=== PATIENT | female | born 1960 | race Caucasian/White ===

== ENCOUNTER 2019-09-21 10:45 | Emergency (ER) | payer SELFPAY ==
[~2019-09-21] VITALS: Ht 170.2 cm; Wt 138.8 kg
[2019-09-21] MEDS ORDERED: ONDANSETRON HCL/PF 4 MG/2 ML VIAL IVP ONE (11:00)
[2019-09-21] MEDS ORDERED: LABETALOL 20 MG/4 ML VIAL IV ONE (11:00)
[2019-09-21] MEDS ORDERED: MORPHINE SULFATE INJ 2 MG/ML DISP.SYRIN IV ONE (11:00)
[2019-09-21] MEDS ORDERED: IV NS 0.9% 500 ML BAG IV ONE (11:00)
[2019-09-21] MEDS ORDERED: LABETALOL HCL IV 100MG VIAL ONE (11:01)
[2019-09-21] MEDS ORDERED: MORPHINE SULFATE INJ 4 MG/ML DISP.SYRIN ONE (11:01)
[2019-09-21] MEDS ORDERED: ONDANSETRON HCL/PF 4 MG/2 ML VIAL ONE (11:01)
[2019-09-21 11:02] LABS: BASOPHILS # (AUTO) 0.1 /CMM (0.0-0.2); BASOPHILS % (AUTO) 0.9 % (0.0-2.0); EOSINOPHILS % (AUTO) 3.4 % (0.0-6.0); HEMATOCRIT 48 % (33-45); HEMOGLOBIN 16.3 g/dL (11.5-14.8); LYMPHOCYTES # (AUTO) 2.5 /CMM (0.8-4.8); LYMPHOCYTES % (AUTO) 34.1 % (20.0-44.0); MEAN CORPUSCULAR HGB CONC 34 g/dl (31.0-36.0); MEAN CORPUSCULAR VOLUME 90 fL (82-100); MONOCYTES # (AUTO) 0.5 /CMM (0.1-1.30); MONOCYTES % (AUTO) 7.2 % (2.0-12.0); NEUTROPHILS % (AUTO) 54.4 % (43.0-81.0); PLATELET COUNT (AUTO) 214 /CMM (150-450); RED BLOOD CELL COUNT(AUTO) 5.38 MIL/uL (4.0-5.2); WHITE BLOOD COUNT (AUTO) 7.3 K/uL (4.3-11.0)
[2019-09-21 11:10] LABS: CALCIUM, SERUM 9.5 mg/dL (8.5-10.1); CARBON DIOXIDE 32 mmol/L (21-32); CHLORIDE 104 mmol/L (98-107); CREATININE 0.8 mg/dL (0.6-1.3); GLUCOSE 78 mg/dL (74-106); SODIUM SERUM 143 mmol/L (136-145); UREA NITROGEN, BLOOD 19 mg/dL (7-18)
[2019-09-21 11:15] LABS: ALANINE AMINOTRANSFERASE 54 U/L (12-78); ALBUMIN 4.2 g/dL (3.4-5.0); ALKALINE PHOSPHATASE 66 U/L (46-116); ASPARTATE AMINOTRANSFERASE 28 U/L (15-37); BILIRUBIN,DIRECT 0.1 mg/dL (0.0-0.2); BILIRUBIN,TOTAL 0.3 mg/dL (0.2-1.0); TOTAL PROTEIN, SERUM 8.5 g/dL (6.4-8.2)
--- NOTE | 2019-09-21 11:19 | NUR ---
bibra 58 from home, headache,blurring vision. hypertensive bar captain. on room air, breathing evenly and unlabored. connected to the monitor and pulse ox. kept comfortable, will continue to monitor accordingly.
--- NOTE | 2019-09-21 11:22 | NUR ---
wheeled patient to CT
--- NOTE | 2019-09-21 11:28 | NUR ---
patient came back from CT
--- NOTE | 2019-09-21 12:11 | NUR ---
IV removed. Catheter intact and site benign. Pressure and 4x4 applied to site. No bleeding noted.Patient discharged to home in stable condition. Written and verbal after care instructions given. Patient verbalizes understanding of instruction.
[2019-09-21 14:27] VITALS: BP 151/77
== END 2019-09-21 12:10 | disposition home or self-care (01) ==
LOC: ER 10:46
DX: I10 Essential (primary) hypertension (principal); R51 Headache
CPT/HCPCS: 36415; 70450; 71045; 80048; 80076; 82962; 83880; 84484; 85025; 85730; 93005; 93970; 96374; 96375; 99284; J2270; J2405; J3490 ×2; J7040